=== PATIENT | male | born 1995 | race African-American/Black ===

== ENCOUNTER 2023-06-09 21:03 | Emergency (ER) | payer OTHER ==
[~2023-06-09] VITALS: Ht 182.9 cm; Wt 77.1 kg
[2023-06-09 21:04] VITALS: BP 136/62; TEMP 101.2; O2SAT 96
[2023-06-09 22:08] LABS: RSV AMPLIFICATION POSITIVE (NEGATIVE)
[2023-06-10] MEDS: ONDANSETRON 4MG 2ML VIAL IV ONE ×2 (00:20→00:58)
[2023-06-10] MEDS: KETOROLAC 30 MG/ML 1ML VIAL IV ONE ×2 (00:20→00:59)
[2023-06-10] MEDS: NS 1,000 ML IV ONE ×2 (00:20→00:59)
[2023-06-10 01:12] LABS: BASO # 0.1 10^3/uL (0.0-0.2); BASO % 0.7 % (0.0-1.0); EOS # 0.1 10^3/uL (0.0-0.5); EOS % 0.8 % (0.0-3.0); HEMATOCRIT 43.2 % (42.0-52.0); HEMOGLOBIN 14.7 g/dl (13.5-17.5); LYMPH # 1.2 10^3/uL (1.5-5.0); LYMPH % 15.7 % (24.0-44.0); MEAN CORPUSCULAR HEMOGLOBIN 29.1 pg (27.0-33.0); MEAN CORPUSCULAR VOLUME 85.4 fl (80.0-96.0); MONO % 12.9 % (2.0-8.0); NEUTROPHILS # 5.3 10^3/uL (1.5-8.5); NEUTROPHILS % 69.8 % (36.0-66.0); PLATELET COUNT, AUTOMATED 233 10^3/uL (150-450); RED BLOOD COUNT 5.06 10^6/uL (4.30-6.10); WHITE BLOOD COUNT 7.5 10^3/uL (4.0-10.0)
[2023-06-10 01:36] LABS: BILIRUBIN,DIRECT 0.1 MG/DL (<0.4); BILIRUBIN,TOTAL 0.5 MG/DL (0.3-1.2); TOTAL PROTEIN 6.5 G/DL (5.7-8.2)
== END 2023-06-10 01:07 | disposition left against medical advice (07) ==
LOC: M ED 21:03
DX: R05.9 Cough, unspecified (principal); B97.4 Respiratory syncytial virus as the cause of diseases classified elsewhere; Z53.9 Procedure and treatment not carried out, unspecified reason

== ENCOUNTER → 2024-02-08 | Outpatient (CLI) | payer OTHER | LOC: M WHC 06:53 | PROVIDERS: ATTEND Physician Assistant Medical | DX: N50.811 Right testicular pain (principal) ==

== ENCOUNTER 2024-04-18 04:24 | Emergency (ER) | payer OTHER ==
[~2024-04-18] VITALS: Ht 182.9 cm; Wt 76.6 kg
[2024-04-18] MEDS ORDERED: LIDOCAINE 1% MDV 20ML VIAL SC ONE (06:05)
[2024-04-18] MEDS: BACITRACIN OINTMENT 30GM TUBE TOP PRN (07:15)
[2024-04-18] MEDS: BOOSTRIX VACCINE (TETANUS/DIPHTH/ACEL. PERTUSSIS) 0.5ML SYR IM.IMMUN ONE (07:15)
[2024-04-18 07:27] VITALS: BP 122/56; TEMP 97.8; O2SAT 97
== END 2024-04-18 07:42 | disposition home or self-care (01) ==
LOC: M ED 04:24
DX: S61.512A Laceration without foreign body of left wrist, initial encounter (principal); W26.0XXA Contact with knife, initial encounter; F17.200 Nicotine dependence, unspecified, uncomplicated; Y92.9 Unspecified place or not applicable; Y93.89 Activity, other specified; Y99.0 Civilian activity done for income or pay

== ENCOUNTER → 2024-08-02 | Outpatient (REF) | payer OTHER | LOC: M LAB REF 12:25 | PROVIDERS: ATTEND Physician Assistant | DX: B34.9 Viral infection, unspecified (principal) ==

== ENCOUNTER 2024-08-31 11:43 | Emergency (ER) | payer OTHER ==
[~2024-08-31] VITALS: Ht 182.9 cm; Wt 80.7 kg
[2024-08-31 11:44] VITALS: TEMP 98.3
[2024-08-31 14:21] LABS: KETONE, URINE AUTO RFX NEGATIVE (NEGATIVE); LEUKOCYTE ESTERASE UR AUTO RFX NEGATIVE (NEGATIVE); MUCUS, URINE RFX SMALL (NEGATIVE); NITRITE, URINE AUTO RFX NEGATIVE (NEGATIVE); RBC, URINE AUTO RFX 0 /HPF (0-3); SQUAM EPITHELIAL CELL UR AURFX 0 /HPF (0-6); WBC, URINE AUTO RFX 1 /HPF (0-3)
[2024-08-31 14:25] VITALS: BP 132/76; O2SAT 96
[2024-08-31 15:21] LABS: Trichomonas vaginalis (AMP) NOT DETECTED (NEGATIVE)
[2024-08-31 15:45] LABS: GC DNA AMPLIFICATION NEGATIVE (NEGATIVE)
[2024-08-31] MEDS ORDERED: BACT800T5 PO (15:54)
== END 2024-08-31 16:01 | disposition home or self-care (01) ==
LOC: M ED 11:43
DX: N50.811 Right testicular pain (principal); Z79.2 Long term (current) use of antibiotics

== ENCOUNTER → 2025-01-01 | Outpatient (REF) | payer OTHER ==
[~2025-01-01] MED LIST: BACT800T5 PO
[2025-01-01 17:24] LABS: APPEARANCE, URINE CLEAR (CLEAR); BACTERIA, URINE AUTO NEGATIVE (NEGATIVE); BILIRUBIN, URINE AUTO NEGATIVE (NEGATIVE); BLOOD, URINE BLOOD NEGATIVE (NEGATIVE); GLUCOSE, URINE (UA) AUTO NEGATIVE (NEGATIVE); KETONE, URINE AUTO NEGATIVE (NEGATIVE); LEUKOCYTE ESTERASE, URINE AUTO NEGATIVE (NEGATIVE); NITRITE, URINE AUTO NEGATIVE (NEGATIVE); PROTEIN, URINE AUTO NEGATIVE (NEGATIVE); RBC, URINE AUTO 0 /HPF (0-3); SPECIFIC GRAVITY URINE AUTO 1.005 (1.002-1.035); SQUAMOUS EPITHELIAL CELL UR AU 0 /HPF (0-6); UROBILINOGEN, URINE AUTO 0.2 mg/dL (0.0-2.0); WBC, URINE AUTO 0 /HPF (0-3)
== END ==
LOC: M SMT 16:50
PROVIDERS: ATTEND Nurse Practitioner Family
DX: N50.82 Scrotal pain (principal)

== ENCOUNTER → 2025-01-15 | Outpatient (CLI) | payer OTHER ==
[~2025-01-15] MED LIST changes: +ISOVUE-370 76% 100 ML VIAL ONE
== END ==
LOC: M PLAIMG 09:43
PROVIDERS: ATTEND Internal Medicine
DX: N50.811 Right testicular pain (principal)
CPT/HCPCS: 74177; Q9967

== ENCOUNTER 2025-01-23 22:24 | Emergency (ER) | payer OTHER ==
[~2025-01-23] VITALS: Ht 182.9 cm; Wt 81.7 kg
[~2025-01-23 22:24] MED LIST changes: -ISOVUE-370 76% 100 ML VIAL ONE
[2025-01-23] MEDS ORDERED: MELO7.5T35 PO (22:54)
[2025-01-23] MEDS ORDERED: RISP0.5T82 PO (22:54)
[2025-01-23 23:34] LABS: KETONE, URINE AUTO RFX NEGATIVE (NEGATIVE); LEUKOCYTE ESTERASE UR AUTO RFX NEGATIVE (NEGATIVE); MUCUS, URINE RFX SMALL (NEGATIVE); NITRITE, URINE AUTO RFX NEGATIVE (NEGATIVE); RBC, URINE AUTO RFX 1 /HPF (0-3); SQUAM EPITHELIAL CELL UR AURFX 0 /HPF (0-6); WBC, URINE AUTO RFX 1 /HPF (0-3)
[2025-01-23 23:37] LABS: AMPHETAMINES LEVEL URINE NEGATIVE (NEGATIVE); BARBITURATES URINE NEGATIVE (NEGATIVE); BENZODIAZEPINES URINE NEGATIVE (NEGATIVE)
[2025-01-23 23:38] LABS: COCAINE METABOLITE URINE NEGATIVE (NEGATIVE); METHADONE URINE NEGATIVE (NEGATIVE); OPIATES URINE NEGATIVE (NEGATIVE); PHENCYCLIDINE URINE NEGATIVE (NEGATIVE)
[2025-01-23 23:42] LABS: ALT/SGPT 44 U/L (7.0-40); AST/SGOT 53 U/L (<34); CALCIUM LEVEL 9.0 MG/DL (8.5-10.1); CARBON DIOXIDE LEVEL 26 MMOL/L (20-31); CHLORIDE LEVEL 109 MMOL/L (98-107); CREATININE FOR GFR 1.10 MG/DL (0.70-1.30); GLOMERULAR FILTRATION RATE > 90.0 (>60); POTASSIUM SERUM 4.5 MMOL/L (3.5-5.1); SODIUM LEVEL 146 MMOL/L (136-145)
[2025-01-23 23:52] LABS: CANNABINOIDS URINE POSITIVE (NEGATIVE)
[2025-01-24 00:30] VITALS: O2SAT 99
[2025-01-24] MEDS: ONDANSETRON 4MG ORAL DISINTEGRATING TAB PO ONE (00:30)
[2025-01-24] MEDS: OMEPRAZOLE 20MG CAP PO ONE (00:30)
[2025-01-24 00:33] LABS: BASO # 0.1 10^3/uL (0.0-0.2); BASO % 0.6 % (0.0-1.0); EOS # 0.1 10^3/uL (0.0-0.5); EOS % 0.7 % (0.0-3.0); LYMPH # 1.7 10^3/uL (1.5-5.0); LYMPH % 9.6 % (24.0-44.0); MONO # 1.0 10^3/uL (0.0-0.8); MONO % 5.6 % (2.0-8.0); NEUTROPHILS # 15.1 10^3/uL (1.5-8.5); NEUTROPHILS % 83.1 % (36.0-66.0); PLATELET COUNT, AUTOMATED 282 10^3/uL (150-450)
[2025-01-24 00:34] VITALS: BP 116/72; TEMP 97.1
== END 2025-01-24 00:36 | disposition home or self-care (01) ==
LOC: M ED 22:24
DX: R11.10 Vomiting, unspecified (principal); R10.9 Unspecified abdominal pain; F17.200 Nicotine dependence, unspecified, uncomplicated; F12.10 Cannabis abuse, uncomplicated; Z79.899 Other long term (current) drug therapy